=== PATIENT | female | born 1940 ===

== ENCOUNTER → 2017-05-08 | Outpatient (CLI) | payer MEDICARE | LOC: PLD 08:34 → LAB SHORT 08:34 | DX: D49.2 Neoplasm of unspecified behavior of bone, soft tissue, and skin (principal) | CPT/HCPCS: 88305 ==

== ENCOUNTER 2020-08-21 10:57 | Emergency (ER) | payer MEDICARE, OTHER ==
[~2020-08-21] VITALS: Ht 154.9 cm; Wt 62.3 kg
[2020-08-21] MEDS ORDERED: PRED FORTE5 M1 BOTHEYES (11:27)
== END 2020-08-21 13:49 | disposition home or self-care (01) ==
LOC: ER 10:57
DX: R10.9 Unspecified abdominal pain (principal); Z88.5 Allergy status to narcotic agent
CPT/HCPCS: 74177; 84484; 93005; 93010; 99284-25; Q9967

== ENCOUNTER → 2022-06-22 | Outpatient (CLI) | payer MEDICARE, OTHER ==
[~2022-06-22] MED LIST: PRED FORTE5 M1 BOTHEYES
[2022-06-22 15:03] LABS: BASOPHILS ABSOLUTE AUTO 0.04 K/mm3 (0.00-0.23); BASOPHILS PERCENT AUTO 1 % (0-2); EOSINOPHILS ABSOLUTE AUTO 0.44 K/mm3 (0.00-0.68); EOSINOPHILS PERCENT AUTO 8 % (0-6); Hematocrit 45.3 % (33.0-51.0); Hemoglobin 15.2 g/dL (11.5-16.0); IMMATURE GRAN PERCENT AUTO 0 % (0-1); LYMPHOCYTES ABSOLUTE AUTO 1.55 K/mm3 (0.84-5.20); LYMPHOCYTES PERCENT AUTO 29 % (21-46); MONOCYTES ABSOLUTE AUTO 0.54 K/mm3 (0.16-1.47); MONOCYTES PERCENT AUTO 10 % (4-13); Mean Corpuscular HGB 31.3 pg (26.0-34.0); Mean Corpuscular HGB Conc 33.6 g/dL (31.5-36.5); Mean Corpuscular Volume 93 fL (80-100); Mean Platelet Volume 10.5 fL (9.1-12.4); NEUTROPHILS PERCENT AUTO 51 % (41-73); Platelet Count 193 K/mm3 (150-400); RDW Coefficient Variation 12.5 % (11.7-14.2); Red Blood Cell Count 4.85 M/mm3 (3.80-5.20); White Blood Cell Count 5.27 K/mm3 (4.00-11.30)
[2022-06-22 15:22] LABS: Albumin, Blood 3.7 g/dL (3.4-5.0); Albumin/Globulin Ratio 0.9 (0.8-1.8); Bilirubin, Total 0.8 mg/dL (0.1-1.0); Bun/Creatinine Ratio 18.8 (12.0-20.0); Calcium, Blood 9.2 mg/dL (8.5-10.1); Creatinine, Blood 0.69 mg/dL (0.40-1.00); Globulin, Blood 4.2 g/dL (2.2-4.0); Potassium, Blood 4.3 mmol/L (3.5-5.5); Thyroid Stimulating Hormone 1.474 uIU/mL (0.360-4.800); Total Protein, Blood 7.9 g/dL (6.4-8.2)
== END | disposition home or self-care (01) ==
LOC: LAB SHORT 14:58 → LAB 14:58
PROVIDERS: Chiropractor
DX: R00.2 Palpitations (principal)
CPT/HCPCS: 80053; 84443; 84484; 85025

== ENCOUNTER 2022-09-21 08:38 | Emergency (ER) | payer MEDICARE, OTHER ==
[~2022-09-21] VITALS: Ht 157.5 cm; Wt 58.1 kg
[2022-09-21 09:30] VITALS: BP 147/73
[2022-09-21] MEDS ORDERED: AMOCLA875 PO (09:45)
== END 2022-09-21 09:56 | disposition home or self-care (01) ==
LOC: ER 08:38
DX: S61.052A Open bite of left thumb without damage to nail, initial encounter (principal); S61.452A Open bite of left hand, initial encounter; Z23 Encounter for immunization; Z88.5 Allergy status to narcotic agent; Z88.8 Allergy status to other drugs, medicaments and biological substances; W54.0XXA Bitten by dog, initial encounter
CPT/HCPCS: 73130; 90714; A9270

== ENCOUNTER 2022-09-24 12:21 | Emergency (ER) | payer MEDICARE, OTHER ==
[~2022-09-24] VITALS: Ht 157.5 cm; Wt 58.1 kg
[~2022-09-24 12:21] MED LIST changes: +AMOCLA875 PO
[2022-09-24 12:39] VITALS: BP 173/70
== END 2022-09-24 13:38 | disposition home or self-care (01) ==
LOC: ER 12:21
DX: S61.452D Open bite of left hand, subsequent encounter (principal); Z48.00 Encounter for change or removal of nonsurgical wound dressing; Z88.5 Allergy status to narcotic agent; Z88.8 Allergy status to other drugs, medicaments and biological substances; Z79.52 Long term (current) use of systemic steroids; W54.0XXD Bitten by dog, subsequent encounter
CPT/HCPCS: 99282

== ENCOUNTER → 2023-01-01 | Outpatient (CLI) | payer MEDICARE, OTHER ==
[2023-01-01 14:38] LABS: BASOPHILS ABSOLUTE AUTO 0.03 K/mm3 (0.00-0.23); BASOPHILS PERCENT AUTO 1 % (0-2); EOSINOPHILS ABSOLUTE AUTO 0.15 K/mm3 (0.00-0.68); EOSINOPHILS PERCENT AUTO 3 % (0-6); Hematocrit 46.9 % (33.0-51.0); Hemoglobin 15.6 g/dL (11.5-16.0); IMMATURE GRAN ABSOLUTE AUTO 0.01 K/mm3 (0.00-0.10); IMMATURE GRAN PERCENT AUTO 0 % (0-1); LYMPHOCYTES ABSOLUTE AUTO 1.28 K/mm3 (0.84-5.20); LYMPHOCYTES PERCENT AUTO 27 % (21-46); MONOCYTES ABSOLUTE AUTO 0.34 K/mm3 (0.16-1.47); MONOCYTES PERCENT AUTO 7 % (4-13); Mean Corpuscular HGB Conc 33.3 g/dL (31.5-36.5); Mean Corpuscular Volume 93 fL (80-100); Mean Platelet Volume 12.1 fL (9.1-12.4); NEUTROPHILS ABSOLUTE AUTO 2.97 K/mm3 (1.96-9.15); NEUTROPHILS PERCENT AUTO 62 % (41-73); Platelet Count 188 K/mm3 (150-400); RDW Coefficient Variation 12.5 % (11.7-14.2); RDW Standard Deviation 42.6 fL (35.1-46.3); Red Blood Cell Count 5.03 M/mm3 (3.80-5.20); White Blood Cell Count 4.78 K/mm3 (4.00-11.30)
[2023-01-01 22:05] LABS: Alanine Aminotransfer (ALT/SGP 27 U/L (12-78); Albumin, Blood 3.9 g/dL (3.4-5.0); Alk Phos 98 U/L (50-136); Anion Gap 4 mmol/L (6-16); Aspartate Aminotrans (AST/SGOT 31 U/L (12-37); Bilirubin, Total 1.1 mg/dL (0.1-1.0); Blood Urea Nitrogen 10 mg/dL (8-24); Bun/Creatinine Ratio 15.2 (12.0-20.0); CO2, Blood 28 mmol/L (21-32); Calcium, Blood 9.4 mg/dL (8.5-10.1); Chloride, Blood 108 mmol/L (98-108); Cholesterol 340 mg/dL (50-200); Creatinine, Blood 0.66 mg/dL (0.40-1.00); Globulin, Blood 3.9 g/dL (2.2-4.0); Glomerular Filtration Rate 89 (60-); Glucose, Blood 103 mg/dL (70-99); HDL Cholesterol 86 mg/dL (>39); LDL/HDL RATIO 2.6; Low Density Lipoprotein Chol 228 mg/dL (0-110); Potassium, Blood 4.1 mmol/L (3.5-5.5); Sodium, Blood 140 mmol/L (136-145); Total Protein, Blood 7.8 g/dL (6.4-8.2); Triglycerides 132 mg/dL (30-160); Very Low Density Lipoprot Chol 26 mg/dL (6-32)
== END | disposition home or self-care (01) ==
LOC: LAB 12:00 → LAB SHORT 12:00
PROVIDERS: Physician Assistant
DX: E78.5 Hyperlipidemia, unspecified (principal); I10 Essential (primary) hypertension; R07.9 Chest pain, unspecified
CPT/HCPCS: 80053; 80061; 84484; 85025